=== PATIENT | female | born 1985 ===

== ENCOUNTER 2017-02-02 08:15 | Emergency (ER) | payer OTHER ==
[2017-02-02 08:28] VITALS: PULSE 82; RESP 16; TEMP 97.7; O2SAT 100
[2017-02-02 09:12] VITALS: BP 122/88
== END 2017-02-02 09:19 | disposition home or self-care (01) | DRG 605 ==
LOC: ED 08:15
DX: S90.02XA Contusion of left ankle, initial encounter (principal); W22.8XXA Striking against or struck by other objects, initial encounter
CPT/HCPCS: 73610; 99282; 99283